=== PATIENT | female | born 1945 | race Caucasian/White ===

== ENCOUNTER 2021-03-09 12:50 | Emergency (ER) | payer MEDICARE ==
[~2021-03-09] VITALS: Ht 152.4 cm; Wt 72.6 kg
--- NOTE | 2021-03-09 13:25 | NUR ---
clam grader at bedside
[2021-03-09 13:30] LABS: BASOPHILS # (AUTO) 0.1 K/uL (0.0-0.2); EOSINOPHILS % (AUTO) 2.9 % (0.0-6.0); HEMATOCRIT 45 % (33-45); HEMOGLOBIN 14.9 g/dL (11.5-14.8); LYMPHOCYTES # (AUTO) 1.7 K/uL (0.8-4.8); LYMPHOCYTES % (AUTO) 22.6 % (20.0-44.0); MEAN CORPUSCULAR HGB CONC 33 g/dl (31.0-36.0); MEAN CORPUSCULAR VOLUME 87 fL (82-100); MONOCYTES # (AUTO) 0.6 K/uL (0.1-1.30); MONOCYTES % (AUTO) 8.2 % (2.0-12.0); NEUTROPHILS # (AUTO) 4.8 K/uL (1.8-8.9); NEUTROPHILS % (AUTO) 65.3 % (43.0-81.0); PLATELET COUNT (AUTO) 359 K/uL (150-450); RED BLOOD CELL COUNT(AUTO) 5.11 MIL/uL (4.0-5.2); WHITE BLOOD COUNT (AUTO) 7.4 K/uL (4.3-11.0)
[2021-03-09 13:39] LABS: CALCIUM, SERUM 9.5 mg/dL (8.5-10.1); CREATININE 0.9 mg/dL (0.6-1.3); POTASSIUM 4.1 mmol/L (3.5-5.1)
--- NOTE | 2021-03-09 14:15 | NUR ---
DR JOHNSON AT BEDSIDE
[2021-03-09] MEDS ORDERED: METOPROLOL TARTRATE INJ 5 MG/5 ML AMPUL ONE (14:20)
[2021-03-09] MEDS ORDERED: METOPROLOL TARTRATE INJ 5 MG/5 ML AMPUL IV ONE (14:30)
[2021-03-09] MEDS ORDERED: IV NS 0.9% 250 ML IV ONE (15:37)
[2021-03-09] MEDS ORDERED: IOHEXOL-350 100 ML VIAL IV ONE (15:37)
--- NOTE | 2021-03-09 15:42 | NUR ---
PT TAKEN TO CT VIA CON[facility]
--- NOTE | 2021-03-09 15:50 | NUR ---
PT RETURNED TO ER BED [address] VIA NEHALSHANNAN
[2021-03-09] MEDS ORDERED: LORAZEPAM INJ 2 MG/ML VIAL IV ONE (16:00)
--- NOTE | 2021-03-09 16:35 | NUR ---
Patient does not wish to proceed with medical care recommended by Dr. Duff. Patient given information related to possible complications, up to and including , which could occur as a result of leaving the hospital at this time. Patient verbalizes understanding of risks involved due to leaving against medical advice. Patient has signed AMA form. PT AMA with son VIA W/C
[2021-03-09 16:39] VITALS: BP 134/59
--- NOTE | 2021-03-09 16:39 | NUR ---
IV removed. Catheter intact and site benign. Pressure and 4x4 applied to site. No bleeding noted.Patient discharged to home in stable condition. Written and verbal after care instructions given. Patient verbalizes understanding of instruction.
== END 2021-03-09 16:40 | disposition home or self-care (01) ==
LOC: ER 12:54
DX: R00.0 Tachycardia, unspecified (principal); R79.1 Abnormal coagulation profile; Z20.822 Contact with and (suspected) exposure to COVID-19; Z53.29 Procedure and treatment not carried out because of patient's decision for other reasons; I11.9 Hypertensive heart disease without heart failure; E11.9 Type 2 diabetes mellitus without complications
CPT/HCPCS: 36415; 71045; 80048; 84484; 85025; 85378; 87426; 93005 ×2; 96374; 99285; J3490; J7050; Q9967; C9803